=== PATIENT | female | born 1965 | race Two or more races ===

== ENCOUNTER 2017-11-01 16:26 | Emergency (ER) | payer SELFPAY ==
[~2017-11-01] VITALS: Ht 152.4 cm; Wt 60.8 kg
[2017-11-01 16:30] VITALS: BP 125/82
[2017-11-01] MEDS ORDERED: HYDROcodone/APAP 5/325 TABLET PO STA (16:58)
[2017-11-01] MEDS ORDERED: ONDANSETRON ODT 4 MG PO ONE (17:00)
[2017-11-01] MEDS ORDERED: HYDROcodone/APAP 5/325 TABLET ONE (17:09)
[2017-11-01] MEDS ORDERED: ONDANSETRON ODT 4 MG ONE (17:10)
== END 2017-11-01 19:08 | disposition home or self-care (01) ==
LOC: ED 19:00
DX: M54.12 Radiculopathy, cervical region (principal); S39.012A Strain of muscle, fascia and tendon of lower back, initial encounter; M41.9 Scoliosis, unspecified; W01.0XXA Fall on same level from slipping, tripping and stumbling without subsequent striking against object, initial encounter; Y93.89 Activity, other specified; Y99.8 Other external cause status; Y92.009 Unspecified place in unspecified non-institutional (private) residence as the place of occurrence of the external cause
CPT/HCPCS: 72050; 72072; 72110; 73030; 99284; Q0162